=== PATIENT | female | born 1960 | race Caucasian/White ===

== ENCOUNTER → 2019-08-08 | Outpatient (CLI) | payer OTHER ==
[~2019-08-08] MED LIST: CALCIUM 500 +1 EACH PO; CENTRUM SILVER1 EAC4 PO; FLEXERIL PO; LEVOTHYROXIN0.125 M1 PO; VITAMINC500 PO; ZYRTEC10 MG PO
== END ==
LOC: LAB 08:00 → EDSTATUS 12:53 → LAB 14:38
PROVIDERS: ATTEND Anesthesiology
DX: Z01.818 Encounter for other preprocedural examination (principal); Z11.59 Encounter for screening for other viral diseases